=== PATIENT | male | born 1960 | race Hispanic/Latino ===

== ENCOUNTER 2017-01-08 11:23 | Emergency (ER) | payer MEDICAID ==
[2017-01-08 11:43] VITALS: BP 103/64; PULSE 75; RESP 18; TEMP 98.6; O2SAT 98
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
[2017-01-08] MEDS ORDERED: Vancomycin 1 g Inj ONE (12:35)
[2017-01-08 12:54] LABS: BASO % 0.3 % (0.0-2.0); EOS % 0.5 % (0.0-4.0); HEMATOCRIT 36.6 % (35.0-51.0); LYMPH # 1.5 K/uL (1.0-4.3); LYMPH % 21.7 % (20.0-40.0); MEAN CELL VOLUME 92.1 fl (80.0-94.0); MEAN CORPUSCULAR HGB CONC 34.8 g/dL (33.0-37.0); MEAN PLATELET VOLUME 7.8 fl (7.2-11.7); MONO # 0.6 K/uL (0.0-0.8); NEUT # 4.9 K/uL (1.8-7.0); NEUT % 69.5 % (50.0-75.0); RED CELL DISTRIBUTION WIDTH 12.8 % (11.5-14.5); WHITE BLOOD COUNT 7.1 K/uL (4.8-10.8)
[2017-01-08 13:04] LABS: ALB/GLOB RATIO 1.1 (1.0-2.1); ALKALINE PHOSPHATASE 114 U/L (38-126); ALT/SGPT 11 U/L (21-72); AST/SGOT 36 U/L (17-59); BLOOD UREA NITROGEN 11 mg/dl (9-20); CALCIUM 9.4 mg/dL (8.4-10.2); CARBON DIOXIDE 26 mmol/L (22-30); CHLORIDE 104 mmol/L (98-107); GFR AFRICAN-AMERICAN > 60; GLUCOSE,RANDOM 123 mg/dL (75-110); POTASSIUM 4.3 MMOL/L (3.6-5.0); SODIUM 144 mmol/l (132-148); TOTAL PROTEIN 8.1 G/DL (6.3-8.2)
--- NOTE | 2017-01-08 14:03 | US ---
PROCEDURE: Right Upper Extremity Venous Doppler HISTORY: r/o dvt COMPARISON: None available. TECHNIQUE: Right upper extremity deep veins, including the lower internal jugular, subclavian, axillary and brachial veins, were evaluated flow, compressibility and respiratory phasicity. FINDINGS: Normal flow, compressibility and respiratory phasicity was observed in the right upper extremity deep veins. Superficial cephalic and basilic veins were also evaluated the, demonstrating no evidence thrombus. IMPRESSION: No evidence of deep venous thrombosis.
== END 2017-01-08 14:55 | disposition left against medical advice (07) ==
LOC: H.ER 11:23
DX: L03.91 Acute lymphangitis, unspecified (principal)

== ENCOUNTER 2017-01-12 11:05 | Emergency (ER) | payer MEDICAID ==
[2017-01-12 11:25] VITALS: BP 121/77; PULSE 64; RESP 18; TEMP 98.2; O2SAT 99
[2017-01-12] MEDS ORDERED: Sodium Chloride 0.9% 1,000 ML IV STA (11:37)
--- NOTE | 2017-01-12 11:40 | ED PDOC ---
HPI: Abdomen Time Seen by Provider: 01/12/17 11:31 History Per: Patient (Abd pain assoc with vomiting after taking antibiotics for cellulitis right arm. Started on Clindamycin 4 days ago. Was tolerating until yesterday. No fever or diarrhea.. Cellulitis improving.) Onset/Duration Of Symptoms: Days (2) Current Symptoms Are (Timing): Intermittent Episodes Severity: Mild Pain Scale Rating Of: 1 Location Of Pain/Discomfort: Epigastric Quality Of Discomfort: Burning Associated Symptoms: Nausea, Vomiting Past Medical History Vital Signs: Last Vital Signs Temp 98.2 F 01/12/17 11:24 Pulse 64 01/12/17 11:24 Resp 18 01/12/17 11:24 BP 121/77 01/12/17 11:24 Pulse Ox 99 01/12/17 11:40 - Medical History PMH: Pneumonia, Pneumothorax - Family History Family History: States: Unknown Family Hx - Home Medications Home Medications: Ambulatory Orders Medication Instructions Recorded Clindamycin [Cleocin] 1 tab PO QID #28 cap 11/05/16 Naproxen [Naprosyn Tab] 1 tab PO Q8 PRN #21 tab 11/05/16 Clindamycin [Cleocin] 300 mg PO Q6 #28 cap 01/08/17 Cephalexin [cephalexin] 500 mg PO Q6 #40 cap 01/12/17 traMADol [Ultram] 50 mg PO Q8 #10 tab 01/12/17 - Allergies Allergies/Adverse Reactions: Allergies Allergy/AdvReac Type Severity Reaction Status Date / Time No Known Allergies Allergy Verified 11/05/16 15:42 Review of Systems ROS Statement: Except As Marked, All Systems Reviewed And Found Negative Constitutional: Negative for: Fever Gastrointestinal: Positive for: Nausea, Vomiting, Abdominal Pain. Negative for : Diarrhea Physical Exam - Reviewed Nursing Documentation Reviewed: Yes Vital Signs Reviewed: Yes - Physical Exam Appears: Positive for: Non-toxic, No Acute Distress Head Exam: Positive for: ATRAUMATIC, NORMAL INSPECTION, NORMOCEPHALIC Skin: Positive for: Normal Color, Warm, DRY Eye Exam: Positive for: EOMI, Normal appearance, PERRL ENT: Positive for: Normal ENT Inspection Neck: Positive for: Normal, Painless ROM Cardiovascular/Chest: Positive for: Regular Rate, Rhythm Respiratory: Positive for: CNT, Normal Breath Sounds Gastrointestinal/Abdominal: Positive for: Bowel Sounds, Soft. Negative for: Tenderness Back: Positive for: Normal Inspection Extremity: Positive for: Normal ROM, Other (Right arm, no erythema, swelling or tenderness) Neurologic/Psych: Positive for: Alert, Oriented - Laboratory Results Result Diagrams: 01/12/17 12:03 01/12/17 12:03 - ECG O2 Sat by Pulse Oximetry: 99 Disposition - Clinical Impression Clinical Impression: Gastritis - Patient ED Disposition Is Patient to be Admitted: No Counseled Patient/Family Regarding: Studies Performed, Diagnosis, Need For Followup, Rx Given - Disposition Referrals: [facility] [Outside] Norm Young DDS [Staff Provider] - Disposition: Routine/Home Disposition Time: 13:18 Condition: FAIR Prescriptions: Cephalexin [cephalexin] 500 mg PO Q6 #40 cap traMADol [Ultram] 50 mg PO Q8 #10 tab Instructions: Gastritis (ED), Toothache (ED)
[2017-01-12 12:33] LABS: BASO % 0.2 % (0.0-2.0); EOS # 0.1 K/uL (0.0-0.7); EOS % 1.1 % (0.0-4.0); HEMATOCRIT 34.4 % (35.0-51.0); LYMPH # 1.4 K/uL (1.0-4.3); LYMPH % 21.4 % (20.0-40.0); MEAN CELL VOLUME 91.6 fl (80.0-94.0); MEAN CORPUSCULAR HEMOGLOBIN 31.8 pg (27.0-31.0); MEAN CORPUSCULAR HGB CONC 34.8 g/dL (33.0-37.0); MEAN PLATELET VOLUME 7.9 fl (7.2-11.7); MONO # 0.4 K/uL (0.0-0.8); MONO % 5.9 % (0.0-10.0); NEUT # 4.7 K/uL (1.8-7.0); NEUT % 71.4 % (50.0-75.0); NRBC % 0.2 % (0.0-0.0); RED CELL DISTRIBUTION WIDTH 13.1 % (11.5-14.5); WHITE BLOOD COUNT 6.5 K/uL (4.8-10.8)
[2017-01-12 12:52] LABS: ALKALINE PHOSPHATASE 113 U/L (38-126); ALT/SGPT 27 U/L (21-72); AST/SGOT 38 U/L (17-59); BILIRUBIN,TOTAL 0.5 mg/dl (0.2-1.3); BLOOD UREA NITROGEN 15 mg/dl (9-20); CALCIUM 9.2 mg/dL (8.4-10.2); CARBON DIOXIDE 27 mmol/L (22-30); CHLORIDE 107 mmol/L (98-107); GFR AFRICAN-AMERICAN > 60; GLUCOSE,RANDOM 112 mg/dL (75-110); POTASSIUM 4.2 MMOL/L (3.6-5.0); SODIUM 146 mmol/l (132-148); TOTAL PROTEIN 7.6 G/DL (6.3-8.2)
== END 2017-01-12 13:50 | disposition home or self-care (01) ==
LOC: H.ER 11:05
DX: K29.70 Gastritis, unspecified, without bleeding (principal); R11.10 Vomiting, unspecified